=== PATIENT | female | born 2000 | race Caucasian/White ===

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

== ENCOUNTER 2020-10-29 14:22 | Emergency (ER) | payer OTHER ==
[2020-10-29 14:56] VITALS: BP 142/72; PULSE 73; TEMP 98.2; BMI 22.4
[2020-10-29] MEDS ORDERED: LIDOCAINE 2.5%/PRILOCAINE 2.5% 30 GRAM TUBE TP ONE (15:32)
[2020-10-29] MEDS ORDERED: LIDOCAINE 2.5%/PRILOCAINE 2.5% (5 Gram/TUBE) TP ONE ×2 (15:33→15:37)
== END 2020-10-29 15:43 | disposition home or self-care (01) ==
LOC: JERFT 14:22
DX: L03.011 Cellulitis of right finger (principal)
CPT/HCPCS: 99283-25

== ENCOUNTER 2020-11-29 18:21 | Emergency (ER) | payer OTHER ==
[2020-11-29 18:45] VITALS: BP 111/47; PULSE 66; TEMP 98.2; BMI 26.6
[2020-11-29] MEDS ORDERED: LIDOCAINE HCL 1%, 10 MG/ML (20ML VIAL) ONE (19:31)
== END 2020-11-29 20:38 | disposition home or self-care (01) ==
LOC: JERFT 18:21
DX: S61.309A Unspecified open wound of unspecified finger with damage to nail, initial encounter (principal)
CPT/HCPCS: 99283-25

== ENCOUNTER 2021-03-09 12:03 | Emergency (ER) | payer OTHER ==
[2021-03-09 12:18] VITALS: BP 123/77; TEMP 98.8; BMI 29.1
[2021-03-09 13:24] VITALS: PULSE 104
[2021-03-09] MEDS ORDERED: ACETAMINOPHEN 500 MG TABLET (FP) PO ONE (13:31)
[2021-03-09] MEDS ORDERED: ACETAMINOPHEN 325 MG TABLET (FP) ONE (13:32)
[2021-03-10 10:07] LABS: SARS-CoV-2 NAA Not Detected (Not Detected)
== END 2021-03-09 15:00 | disposition left against medical advice (07) ==
LOC: JER 12:03
DX: R07.0 Pain in throat (principal)
CPT/HCPCS: 87880; 99284-25; C9803; U0003; U0005

== ENCOUNTER 2021-04-01 20:00 | Inpatient (IN) | payer OTHER ==
[2021-04-01 21:12] LABS: BASO % 0.3 % (0-2.0); EOS % 0.9 % (0-4.5); HEMATOCRIT 39.5 % (32.4-45.2); HEMOGLOBIN 13.3 GM/dL (10.7-15.3); LYMPH % 13.9 % (8-40); MCH 30.1 pg (25.7-33.7); MCHC 33.8 g/dl (32.0-36.0); MEAN CELL VOLUME 89.3 fl (80-96); MEAN PLT VOLUME 10.2 fl (7.5-11.1); MONO % 9.5 % (3.8-10.2); NEUT % 75.4 % (42.8-82.8); PLATELET COUNT 168 10^3/uL (134-434); RBC 4.43 M/mm3 (3.60-5.2); RDW 13.7 % (11.6-15.6); WHITE BLOOD COUNT 12.3 K/mm3 (4.0-10.0)
[2021-04-01] MEDS ORDERED: CITRIC ACID/SODIUM CITRATE 30 ML UNIT-DOSE CUP PO ONE (21:12)
[2021-04-01] MEDS ORDERED: WITCH HAZEL 50% (TUCKS) 40 PAD/JAR PAD TP PRN (21:15)
[2021-04-01] MEDS ORDERED: BENZOCAINE 20% 57 GM BOTTLE TP PRN (21:15)
[2021-04-01] MEDS ORDERED: diphenhydrAMINE HCL 25 MG CAPSULE (FP) PO PRN (21:15)
[2021-04-01] MEDS ORDERED: BENZOCAINE 28 GM HEMORRHOIDAL OINTMENT PR PRN (21:15)
[2021-04-01] MEDS: ELECTROLYTE-148 SOLN 1,000 ML IV SCH (21:15)
[2021-04-01] MEDS ORDERED: METHYLERGONOVINE MALEATE 0.2 MG/1 ML AMP IM PRN (21:15)
[2021-04-01 21:23] LABS: INR 0.82 (0.83-1.09); PROTHROMBIN TIME (PATIENT) 10.2 SEC (9.7-13.0)
[2021-04-01 21:24] LABS: ACTIVATED PTT 30.7 SECONDS (25.2-36.5)
[2021-04-01] MEDS ORDERED: ONDANSETRON 4 MG/2 ML VIAL IVPUSH PRN (21:33)
[2021-04-01] MEDS ORDERED: morphine SULFATE/PF 0.5 MG/ML (2cc Syringe - QUVA) EP ONE (21:33)
[2021-04-01 21:34] LABS: CALCIUM 9.2 mg/dL (8.5-10.1)
[2021-04-01 21:35] LABS: ALBUMIN 3.4 g/dl (3.4-5.0)
[2021-04-01 21:38] LABS: CREATININE 0.6 mg/dL (0.55-1.3)
[2021-04-01 21:39] LABS: BILIRUBIN,TOTAL 0.4 mg/dL (0.2-1)
[2021-04-01 21:40] LABS: TOT PROT 7.3 g/dl (6.4-8.2)
[2021-04-01] MEDS ORDERED: morphine SULFATE/PF 0.5 MG/ML (2cc Syringe - QUVA) ONE (21:55)
[2021-04-01] MEDS ORDERED: ceFAZolin SODIUM 1 GM VIAL ONE ×2 (21:56)
[2021-04-01 22:28] LABS: HIV INTERPRETATION NEGATIVE (NEGATIVE)
[2021-04-01] MEDS ORDERED: OXYTOCIN 10 UNITS/ML VIAL ONE (22:29)
[2021-04-01] MEDS ORDERED: MIDAZOLAM HCL 2 MG/2 ML SINGLE DOSE VIAL ONE (22:33)
[2021-04-01 23:21] VITALS: BMI 29.9
[2021-04-02 00:10] LABS: CORD BASE EXCESS -3.9 mmol/L (0-2); CORD HCO3 22.4 mmHg (20-29); CORD PCO2 45.5 mmHg (30-78); CORD pH 7.311 (7.14-7.44)
[2021-04-02 00:13] LABS: CORD HCO3 21.9 mmHg (20-29); CORD PCO2 56.9 mmHg (30-78); CORD pH 7.204 (7.14-7.44)
[2021-04-02] MEDS: IBUPROFEN 800 MG/8 ML IJ IVPB PRN ×2 (01:12→12:43)
[2021-04-02 08:36] LABS: HEMATOCRIT 32.7 % (32.4-45.2); HEMOGLOBIN 10.9 GM/dL (10.7-15.3); MCHC 33.3 g/dl (32.0-36.0); MEAN CELL VOLUME 90.2 fl (80-96); MEAN PLT VOLUME 10.1 fl (7.5-11.1); PLATELET COUNT 124 10^3/uL (134-434); RBC 3.63 M/mm3 (3.60-5.2); RDW 13.4 % (11.6-15.6); WHITE BLOOD COUNT 12.7 K/mm3 (4.0-10.0)
[2021-04-02] MEDS ORDERED: HYDROmorphone HCL 2 MG TABLET PO PRN (10:00)
[2021-04-02] MEDS ORDERED: oxyCODONE HCL 5 MG TABLET PO PRN ×2 (10:00→10:15)
[2021-04-02] MEDS: IBUPROFEN 600 MG TABLET (FP) PO PRN (19:03)
[2021-04-02] MEDS: ACETAMINOPHEN 325 MG TABLET (FP) PO PRN (19:04)
[2021-04-02] MEDS ORDERED: BISACODYL 10 MG SUPP.RECT PR PRN (21:15)
[2021-04-03] MEDS: IBUPROFEN 600 MG TABLET (FP) PO PRN ×4 (05:28→22:16)
[2021-04-03] MEDS: SIMETHICONE 80 MG TAB.CHEW (FP) PO PRN ×3 (05:28→16:25)
[2021-04-03] MEDS: ACETAMINOPHEN 325 MG TABLET (FP) PO PRN ×4 (05:28→22:17)
[2021-04-03] MEDS: ELECTROLYTE-148 SOLN 1,000 ML IV SCH (13:39)
[2021-04-03] MEDS ORDERED: SENNOSIDES/DOCUSATE COMBO (SENNA PLUS) TABLET (UD) PO PRN (22:00)
[2021-04-04] MEDS: ACETAMINOPHEN 325 MG TABLET (FP) PO PRN ×2 (05:43→10:56)
[2021-04-04] MEDS: IBUPROFEN 600 MG TABLET (FP) PO PRN ×2 (05:44→10:56)
[2021-04-04 07:37] LABS: HEMOGLOBIN 11.1 GM/dL (10.7-15.3); MCH 30.5 pg (25.7-33.7); MCHC 33.7 g/dl (32.0-36.0); MEAN CELL VOLUME 90.5 fl (80-96); MEAN PLT VOLUME 9.9 fl (7.5-11.1); PLATELET COUNT 133 10^3/uL (134-434); RBC 3.64 M/mm3 (3.60-5.2); RDW 13.5 % (11.6-15.6); WHITE BLOOD COUNT 9.7 K/mm3 (4.0-10.0)
[2021-04-04 10:27] VITALS: BP 112/74; PULSE 73; TEMP 97.8
== END 2021-04-04 11:50 | disposition home or self-care (01) | DRG 540 ==
LOC: JDEL 20:00 → JLDR 20:02 → JDEL 20:34 → J3W 04-02 01:00
PROVIDERS: ADMIT Obstetrics & Gynecology; ATTEND Obstetrics & Gynecology
PROC: 10D00Z1 Extraction of Products of Conception, Low, Open Approach (ICD-10-PCS; principal; 2021-04-02)
DX: O34.211 Maternal care for low transverse scar from previous cesarean delivery (principal); Z3A.37 37 weeks gestation of pregnancy; Z37.0 Single live birth
CPT/HCPCS: 36415; 36600; 80053; 82803; 85025; 85027; 85610; 85730; 86762; 86780; 86850; 86870; 86900; 86901; 86902; 87340; 87389; C9803; U0003; U0005

== ENCOUNTER 2021-06-20 18:46 | Emergency (ER) | payer OTHER ==
[2021-06-20 19:02] VITALS: BP 122/84; PULSE 62; TEMP 98.3; BMI 28.3
== END 2021-06-20 21:29 | disposition home or self-care (01) ==
LOC: JERFT 18:46
DX: M67.432 Ganglion, left wrist (principal); N64.59 Other signs and symptoms in breast
CPT/HCPCS: 99281-25